=== PATIENT | male | born 1980 | race Two or more races ===

== ENCOUNTER 2020-07-23 16:23 | Emergency (ER) | payer SELFPAY ==
[~2020-07-23] VITALS: Ht 177.8 cm; Wt 85.0 kg
--- NOTE | 2020-07-23 16:41 | NUR ---
[id number]
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
--- NOTE | 2020-07-23 17:21 | NUR ---
PT ENDORSED TO LAURYN CURTIS RN.
[2020-07-23] MEDS ORDERED: HYDROmorphone 2 MG/ML, 1ML IM ONE (17:30)
[2020-07-23] MEDS ORDERED: ONDANSETRON ODT 4 MG PO ONE (17:30)
--- NOTE | 2020-07-23 17:39 | NUR ---
BREAK RN: PT AT XRAY
[2020-07-23] MEDS ORDERED: HYDROmorphone 1 MG/ML, 1ML INJ ONE (17:41)
[2020-07-23] MEDS ORDERED: ONDANSETRON ODT 4 MG ONE (17:41)
--- NOTE | 2020-07-23 18:00 | NUR ---
BREAK RN: PT BACK FROM XRAY. TECHNICAL SALES SUPPORT SPECIALIST PER JUL. PT CONNECTED TO MONITORING. FAMILY AT BEDSIDE.
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
[2020-07-23 19:00] VITALS: BP 129/71
[2020-07-23] MEDS ORDERED: NEOSPORIN OINT. PKT 1 PACKET ONE ×2 (19:04→19:05)
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
== END 2020-07-23 19:54 | disposition home or self-care (01) ==
LOC: ED 19:45
DX: S80.01XA Contusion of right knee, initial encounter (principal); S90.01XA Contusion of right ankle, initial encounter; S90.31XA Contusion of right foot, initial encounter; X58.XXXA Exposure to other specified factors, initial encounter; Y93.89 Activity, other specified; Y92.89 Other specified places as the place of occurrence of the external cause; Y99.8 Other external cause status
CPT/HCPCS: 73564; 73590; 73630; 96372; 99284; J1170; Q0162